=== PATIENT | male | born 1945 | race Caucasian/White ===

== ENCOUNTER 2019-10-04 06:15 | Emergency (ER) | payer MEDICARE, OTHER ==
[2019-10-04] MEDS ORDERED: Sodium Chloride 0.9% 250 ML IV ONE ×2 (06:16)
[2019-10-04] MEDS ORDERED: Iopamidol 612 MG/ML 100 ML Bottle IVPUSH ONE (07:00)
[2019-10-04] MEDS ORDERED: Iopamidol 612 MG/ML 50 ML SDV IVPUSH ONE (07:00)
[2019-10-04 08:53] LABS: ANION GAP 12.8 mEq/L (7-13); CHLORIDE,CL 108 mmol/L (98-107); SODIUM,NA 143 mmol/L (136-145)
== END 2019-10-04 08:52 | disposition home or self-care (01) ==
LOC: DL.ED 06:15
DX: S39.012A Strain of muscle, fascia and tendon of lower back, initial encounter (principal); I10 Essential (primary) hypertension; X58.XXXA Exposure to other specified factors, initial encounter
CPT/HCPCS: 36415; 71260; 74177; 80053; 81001; 82150; 83690; 85025; 99284; J7050; Q9967; 99283

== ENCOUNTER 2023-01-05 07:34 | Emergency (ER) | payer MEDICARE, OTHER ==
[2023-01-05 08:02] LABS: BASOPHILS PERCENT AUTO 0.2 % (0.0-1.0); EOSINOPHILS PERCENT AUTO 1.9 % (1.0-3.0); HEMATOCRIT 45.4 % (40.0-54.0); HEMOGLOBIN 15.2 g/dL (14.0-18.0); LYMPHOCYTES PERCENT AUTO 22.1 % (20.5-50.1); MEAN CORPUSCULAR HEMOGLOBIN 30.5 pg (27.0-34.0); MEAN CORPUSCULAR HGB CONC 33.5 g/dL (33.0-35.0); MEAN CORPUSCULAR VOLUME 91.2 fL (80-100); MONOCYTES PERCENT AUTO 8.1 % (2-8); NEUTROPHILS PERCENT AUTO 67.7 % (42.2-75.2); PLATELET COUNT,PLT 223 10^3/uL (150-450); RED BLOOD CELL COUNT 4.98 10^6/uL (4.6-6.2); WHITE BLOOD CELL COUNT,WBC 12.2 10^3/uL (5.0-10.0)
[2023-01-05] MEDS: Aspirin 81 MG Tab.Chew PO ONE (08:03)
[2023-01-05 08:23] LABS: A/G RATIO 1.2; ALANINE AMINOTRANSFERASE,ALT 31 U/L (16-63); ALBUMIN 3.8 g/dL (3.4-5.0); ALKALINE PHOSPHATASE 73 U/L (46-116); ANION GAP 15.2 mEq/L (7-13); ASPARTATE AMNIOTRANSFERASE,AST 21 U/L (15-37); BILIRUBIN TOTAL 1.1 mg/dL (0.2-1.0); BLOOD UREA NITROGEN,BUN 13 mg/dL (7-18); BUN/CREATININE RATIO 12.1 (No establ ref range); CALCIUM 8.7 mg/dL (8.5-10.1); CARBON DIOXIDE,CO2 25 mmol/L (21-32); CHLORIDE,CL 107 mmol/L (98-107); CREATININE 1.07 mg/dL (0.70-1.30); GLUCOSE RANDOM 125 mg/dL (70-99); POTASSIUM,K 4.2 mmol/L (3.5-5.1); SODIUM,NA 143 mmol/L (136-145)
[2023-01-05 08:26] LABS: ESTIMATED GFR 71 mL/min (>=60)
[2023-01-05] MEDS ORDERED: Diltiazem 25 MG/5 ML SDV IVPUSH ONE (09:10)
[2023-01-05] MEDS: Lactated Ringers 1,000 ML IV SCH (09:17)
== END 2023-01-05 10:44 | disposition home or self-care (01) ==
LOC: DL.ED 07:34
DX: J06.9 Acute upper respiratory infection, unspecified (principal); I48.91 Unspecified atrial fibrillation; I10 Essential (primary) hypertension; E78.00 Pure hypercholesterolemia, unspecified; Z20.822 Contact with and (suspected) exposure to COVID-19; Z88.5 Allergy status to narcotic agent; Z88.2 Allergy status to sulfonamides; Z88.0 Allergy status to penicillin; Z79.899 Other long term (current) drug therapy; Z79.82 Long term (current) use of aspirin
CPT/HCPCS: 36415; 71046; 80053; 84484; 85025; 87081; 87430; 87804; 93005; 93010; 99284; A9270-GY; J7120; U0002

== ENCOUNTER 2024-04-15 19:28 | Emergency (ER) | payer MEDICARE, OTHER ==
[2024-04-15] MEDS: Famotidine 20 MG/2 ML SDV IVPUSH ONE (19:46)
[2024-04-15] MEDS: Ondansetron 4 MG/2 ML SDV IVPUSH ONE ×2 (19:46→21:51)
[2024-04-15] MEDS: Sodium Chloride 0.9% 1,000 ML IV ONE (19:46)
[2024-04-15 20:04] LABS: BASOPHILS PERCENT AUTO 0.2 % (0.0-1.0); EOSINOPHILS PERCENT AUTO 0.9 % (1.0-3.0); HEMATOCRIT 43.1 % (40.0-54.0); HEMOGLOBIN 13.8 g/dL (14.0-18.0); LYMPHOCYTES PERCENT AUTO 25.9 % (20.5-50.1); MEAN CORPUSCULAR HEMOGLOBIN 30.1 pg (27.0-34.0); MEAN CORPUSCULAR VOLUME 94.1 fL (80-100); MONOCYTES PERCENT AUTO 11.7 % (2-8); NEUTROPHILS PERCENT AUTO 61.3 % (42.2-75.2); PLATELET COUNT,PLT 159 10^3/uL (150-450); RED BLOOD CELL COUNT 4.58 10^6/uL (4.6-6.2); WHITE BLOOD CELL COUNT,WBC 9.2 10^3/uL (5.0-10.0)
[2024-04-15 20:16] LABS: INR 2.4 (0.9-1.2); PROTHROMBIN TIME 23.4 SEC (9.0-12.0)
[2024-04-15 20:24] LABS: A/G RATIO 1.1; ALANINE AMINOTRANSFERASE,ALT 26 U/L (16-63); ALBUMIN 3.5 g/dL (3.4-5.0); ALKALINE PHOSPHATASE 61 U/L (46-116); ASPARTATE AMNIOTRANSFERASE,AST 20 U/L (15-37); BILIRUBIN TOTAL 1.3 mg/dL (0.2-1.0); BLOOD UREA NITROGEN,BUN 13 mg/dL (7-18); BUN/CREATININE RATIO 13.3 (No establ ref range); CALCIUM 8.5 mg/dL (8.5-10.1); CARBON DIOXIDE,CO2 27 mmol/L (21-32); CHLORIDE,CL 107 mmol/L (98-107); CREATININE 0.98 mg/dL (0.70-1.30); EST CRCL DRUG DOSING (CG) 64.89 mL/min; GLUCOSE RANDOM 122 mg/dL (70-99); LACTIC ACID 1.3 mmol/L (0.4-2.0); LIPASE 16 U/L (16-77); MAGNESIUM 1.7 mg/dL (1.8-2.4); PROTEIN TOTAL,TP 6.6 g/dL (6.4-8.2); SODIUM,NA 144 mmol/L (136-145)
[2024-04-15] MEDS: Albuterol/Ipratropium 3.0-0.5 MG/3 ML Neb Soln NEB ONE (20:24)
[2024-04-15 20:25] LABS: ESTIMATED GFR 77 mL/min (>=60); ETHANOL BLOOD MEDICAL < 3 mg/dL (0)
[2024-04-15] MEDS: Magnesium Sulfate/Water Premix 2 GM in Premix Bag 1 BAG IV ONE (20:30)
[2024-04-15] MEDS: Iopamidol 612 MG/ML 100 ML Bottle IVPUSH ONE (20:47)
[2024-04-15] MEDS: Dexamethasone 4 MG/ML SDV IVPUSH ONE (21:38)
== END 2024-04-15 23:42 | disposition home or self-care (01) ==
LOC: DL.ED 19:28
DX: U07.1 COVID-19 (principal); R42 Dizziness and giddiness; E83.42 Hypomagnesemia; E86.0 Dehydration; I48.91 Unspecified atrial fibrillation; I11.0 Hypertensive heart disease with heart failure; I50.9 Heart failure, unspecified; E78.00 Pure hypercholesterolemia, unspecified; Z86.16 Personal history of COVID-19; Z90.49 Acquired absence of other specified parts of digestive tract; Z88.0 Allergy status to penicillin; Z88.5 Allergy status to narcotic agent; Z88.2 Allergy status to sulfonamides; Z88.8 Allergy status to other drugs, medicaments and biological substances; Z79.01 Long term (current) use of anticoagulants; Z79.899 Other long term (current) drug therapy
CPT/HCPCS: 36415; 70450; 71045; 74177; 80053; 80307; 83605; 83690; 83735; 83880; 84484; 85025; 85610; 87428; 93005; 93010; 96361; 96365; 96366; 96375; 96376; 99284; 99285; J1100; J2405; J3475; J3490; J7030; Q9967; J7620-GY